=== PATIENT | female | born 1945 | race Caucasian/White ===

== ENCOUNTER 2018-01-07 10:36 | Outpatient (CLI) | payer MEDICARE ==
--- NOTE | 2018-01-07 14:52 | PET ---
PET CT OF THE BRAIN: HISTORY: Alzheimer's disease with early onset. TECHNIQUE: PET CT of the brain was performed following the intravenous administration of 8.3 mCi [id number] glucose in the right antecubital fossa. Imaging after an uptake interval of 45 minutes. FINDINGS: Fairly symmetric tracer distribution is seen to the hemispheres bilaterally. No hypOmetabolism is se en in the parietotemporal regions, posterior cingulate gyrus of precuneus. IMPRESSION: No significant abnormalities are identified. POS: JUAN
== END 2018-01-07 10:37 | disposition home or self-care (01) ==
LOC: PET 10:36
PROVIDERS: ATTEND Psychiatry & Neurology Neurology
DX: G30.0 Alzheimer's disease with early onset (principal)
CPT/HCPCS: 78608; A9552

== ENCOUNTER 2018-10-06 12:47 | Inpatient (IN) | payer MEDICARE ==
[2018-10-06 14:24] LABS: #Eosinphils 0.2 thou/uL (0.0-0.7); #Lymphocytes 1.4 thou/uL (1.20-3.40); #Monocytes 0.3 thou/uL (0.11-0.59); %Basophils 0.9 % (0.0-1.0); %Eosinophils 3.8 % (0.0-10.0); %Lymphocytes 28.7 % (21.0-51.0); %Monocytes 5.6 % (0.0-10.0); %Neutrophils 61.1 % (42.0-75.0); Hemoglobin 11.7 g/dL (12.0-16.0); Mean Corpuscular HGB CONC 34.7 g/dL (32.0-36.0); Mean Corpuscular Hemoglobin 32.2 pg (27.0-31.0); Mean Corpuscular Volume 92.8 fL (78.0-98.0); Mean Platelet Volume 7.2 fL (7.4-10.4); Platelet Count 189 thou/uL (130-400); RBC Distribution Width 11.8 % (11.5-14.5); Red Blood Cell (RBC) Count 3.63 mill/uL (4.20-5.40)
[2018-10-06] MEDS ORDERED: Lorazepam 2 MG/ML VIAL ONE (14:42)
[2018-10-06] MEDS ORDERED: Haloperidol Lactate 5 MG/ML VIAL ONE (14:43)
[2018-10-06 14:45] LABS: ALT (SGPT) 17 U/L (8-55); AST (SGOT) 20 U/L (5-34); Albumin 4.2 g/dL (3.4-4.8); Alkaline Phosphatase 71 U/L (40-150); Anion Gap 12 mmol/L (10-20); BUN (Urea Nitrogen) 23 mg/dL (9.8-20.1); Bilirubin, Total 0.4 mg/dL (0.2-1.2); Calc. Creatinine Clearance 0 mL/min (70-130); Carbon Dioxide 24 mmol/L (23-31); Chloride 109 mmol/L (98-107); Estimated GFR-MDRD 33; Glucose 84 mg/dL (83-110); Potassium 3.9 mmol/L (3.5-5.1); Protein, Total 7.2 g/dL (6.0-8.3); Sodium 141 mmol/L (136-145)
[2018-10-06] MEDS ORDERED: Ketamine 50 MG/ML (10ML VIAL) ONE (15:18)
--- NOTE | 2018-10-06 16:14 | CT ---
EXAM: CT brain without contrast HISTORY: Worsening altered mental status COMPARISON: None TECHNIQUE: Multiple contiguous axial images were obtained and a CT of the brain without contrast. FINDINGS: Diffuse cerebral atrophy is seen. No large confluent infarction is seen. There is no eviden ce of hydrocephalus, intracranial hemorrhage, or extra-axial fluid collection. The calvarium and overlying soft tissues are unremarkable. The visualized paranasal sinuses and masto id air cells are well aerated. IMPRESSION: No evidence of acute intracranial abnormality
[2018-10-06] MEDS ORDERED: Ziprasidone 20 MG VIAL ONE ×3 (16:33→16:40)
[2018-10-06 16:50] LABS: Bilirubin Negative (Negative); Blood, Urine Small (Negative); Clarity Slightly Cloudy (Clear); Glucose, Urine (Dipstick) Negative (Negative); Leukocyte Negative (Negative); Nitrite Positive (Negative); Protein, Urine (Dipstick) 30 mg/dL (Neg-Trace); Specific Gravity, Urine 1.025 (1.005-1.030); Urobilinogen 0.2 mg/dL (0.2-1.0); pH, Urine 5.5 (5.0-9.0)
[2018-10-06 17:03] LABS: Bacteria/HPF 4+ HPF (None Seen); Squamous Epithelial 0-3 HPF (0-3)
[2018-10-06 17:04] LABS: Hyaline Casts/LPF 0-3 HYALINE CAST LPF (0-3 Hyaline)
[2018-10-06] MEDS ORDERED: cefTRIAXone\\ROCEPHIN 1 GM VIAL ONE (17:15)
[2018-10-06 17:35] LABS: CK (CPK) 458 U/L (29-168); Lipase 214 U/L (8-78)
[2018-10-06] MEDS ORDERED: Ondansetron ODT 4 MG TAB SL PRN (19:53)
[2018-10-06] MEDS ORDERED: Sodium Chloride 0.9% 1,000 ML IV SCH (19:53)
[2018-10-06] MEDS ORDERED: Ondansetron PF 4 MG/2 ML Vial IVP PRN (19:53)
[2018-10-07] MEDS ORDERED: Calcium Carbonate 500 MG ChewTAB PO PRN (00:13)
[2018-10-07] MEDS ORDERED: Bisacodyl 10 MG SUPP PR PRN (00:13)
[2018-10-07] MEDS ORDERED: Acetaminophen 325 MG TAB PO PRN (00:13)
[2018-10-07] MEDS ORDERED: Acetaminophen 650 MG Suppository PR PRN (00:13)
[2018-10-07] MEDS ORDERED: cloNIDine 0.1 MG TAB PO PRN (00:17)
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
[2018-10-07] MEDS: Dextrose 5 %-0.45 % NaCl 1,000 ML IV SCH ×2 (01:00→12:21)
[2018-10-07] MEDS ORDERED: cloNIDine 0.1mg/24 Hour PATCH TD SCH (01:00)
[2018-10-07 06:27] LABS: #Eosinphils 0.2 thou/uL (0.0-0.7); #Lymphocytes 1.2 thou/uL (1.20-3.40); #Monocytes 0.3 thou/uL (0.11-0.59); #Neutrophils 3.4 thou/uL (1.40-6.50); %Basophils 0.2 % (0.0-1.0); %Eosinophils 3.8 % (0.0-10.0); %Lymphocytes 22.7 % (21.0-51.0); %Monocytes 6.6 % (0.0-10.0); %Neutrophils 66.7 % (42.0-75.0); Hemoglobin 11.3 g/dL (12.0-16.0); Mean Corpuscular HGB CONC 33.7 g/dL (32.0-36.0); Mean Corpuscular Hemoglobin 31.5 pg (27.0-31.0); Mean Corpuscular Volume 93.5 fL (78.0-98.0); Mean Platelet Volume 7.1 fL (7.4-10.4); Platelet Count 168 thou/uL (130-400); RBC Distribution Width 11.7 % (11.5-14.5); White Blood Cell (WBC) Count 5.1 thou/uL (4.8-10.8)
[2018-10-07 06:51] LABS: ALT (SGPT) 17 U/L (8-55); AST (SGOT) 26 U/L (5-34); Albumin 3.7 g/dL (3.4-4.8); Alkaline Phosphatase 70 U/L (40-150); Anion Gap 13 mmol/L (10-20); BUN (Urea Nitrogen) 18 mg/dL (9.8-20.1); Bilirubin, Total 0.4 mg/dL (0.2-1.2); CK (CPK) 682 U/L (29-168); Calc. Creatinine Clearance 33 mL/min (70-130); Calcium 8.7 mg/dL (7.8-10.44); Carbon Dioxide 22 mmol/L (23-31); Chloride 110 mmol/L (98-107); Estimated GFR-MDRD 38; Globulin 2.6 g/dL (2.4-3.5); Glucose 98 mg/dL (83-110); Lipase 44 U/L (8-78); Magnesium 2.1 mg/dL (1.6-2.6); Phosphorus 3.4 mg/dL (2.3-4.7); Potassium 3.5 mmol/L (3.5-5.1); Protein, Total 6.3 g/dL (6.0-8.3); Sodium 141 mmol/L (136-145)
[2018-10-07 07:53] LABS: Folate (Folic Acid) 15.3 ng/mL (7.0-31.4)
[2018-10-07] MEDS: Metoprolol Tartrate 25 MG TAB PO SCH ×2 (09:01→20:00)
[2018-10-07] MEDS: Senokot S 8.6-50 MG TAB PO SCH ×2 (09:02→20:01)
[2018-10-07] MEDS: Amlodipine 5 MG TAB PO SCH ×2 (09:02→19:59)
[2018-10-07] MEDS: Enoxaparin Sodium 30 MG/0.3 ML SYRINGE SC SCH (09:03)
[2018-10-07] MEDS ORDERED: Lorazepam 1 MG TAB PO PRN ×2 (14:05→19:16)
--- NOTE | 2018-10-07 14:26 | PDOC.PN ---
- Subjective Encounter Start Date: 10/07/18 (f/u encephalopathy) Encounter Start Time: 14:24 Subjective: Pt sitting on side of bed, son states difficulty with having her sit down. -: He reports she is more calm today. Has been combative and fighting at home -: 2 meds recently initiated and stopped at home - donepezil and celexa - Objective Vital Signs & Weight: Vital Signs (12 hours) Temp Pulse Resp BP BP BP Pulse Ox 10/07/18 12:00 98.4 F 59 L 18 121/72 95 10/07/18 09:02 65 136/73 10/07/18 08:00 95 10/07/18 07:46 97.7 F 65 16 136/77 99 10/07/18 04:13 97.5 F L 65 16 134/75 96 Weight Weight 130 lb I&O: 10/06/18 10/07/18 10/08/18 06:59 06:59 06:59 Intake Total 800 Balance 800 Result Diagrams: 10/07/18 06:14 10/07/18 06:14 Phys Exam - Physical Examination Constitutional: NAD Respiratory: no wheezing, no rales, no rhonchi, clear to auscultation bilateral Cardiovascular: RRR, no significant murmur Gastrointestinal: soft, non-tender, no distention, positive bowel sounds Musculoskeletal: no edema Neurological: non-focal Deviation from normal: not oriented to time/place/situation Dx/Plan (1) UTI (urinary tract infection) Status: Acute (2) Dementia Code(s): F03.90 - UNSPECIFIED DEMENTIA WITHOUT BEHAVIORAL DISTURBANCE Status: Chronic Qualifiers: Dementia type: unspecified type (3) Encephalopathy Code(s): G93.40 - ENCEPHALOPATHY, UNSPECIFIED Status: Acute (4) Elevated CK Status: Acute (5) CKD (chronic kidney disease) Code(s): N18.9 - CHRONIC KIDNEY DISEASE, UNSPECIFIED Status: Chronic Qualifiers: Chronic kidney disease stage: stage 3 (moderate) Qualified Code(s): N18.3 - Chronic kidney disease, stage 3 (moderate) (6) Anemia Code(s): D64.9 - ANEMIA, UNSPECIFIED Status: Chronic Qualifiers: Chronic kidney disease stage: stage 3 (moderate) (7) Hypertension Code(s): I10 - ESSENTIAL (PRIMARY) HYPERTENSION Status: Chronic Qualifiers: Hypertension type: essential hypertension Qualified Code(s): I10 - Essential (primary) hypertension - Plan * Pt with improvement - reviewed meds with son and since donepezil and celexa were recently initiated and d/c by them due to behavior, will hold on these. Resume lorazepam * lower IVF rate * elevated cK likely from combative behavior at home - continue Low rate IVF * continue rocephin - urine cx positive for gram neg growth, and blood cx negative * * dvt prophy - lovenox * gi prophy - not indicated * code status full - reviewed with pt's son and daughter. They report their Dad is the surrogate decision maker..
[2018-10-07] MEDS ORDERED: Dextrose 5 %-0.45 % NaCl 1,000 ML IV SCH (14:32)
[2018-10-07] MEDS: cefTRIAXone\\ROCEPHIN 1 GM in Sodium Chloride 0.9% 100 ML IVPB SCH (15:25)
[2018-10-07 15:58] VITALS: BMI 23.0
[2018-10-07] MEDS: Lorazepam 2 MG/ML VIAL SLOW IVP PRN (19:53)
[2018-10-07] MEDS ORDERED: Donepezil HCl 5 MG TAB PO SCH (21:00)
[2018-10-07] MEDS ORDERED: Prevnar 13-Val Conj/PF 0.5 ML SYRINGE IM ONE (21:00)
[2018-10-08 08:41] LABS: Anion Gap 11 mmol/L (10-20); BUN (Urea Nitrogen) 11 mg/dL (9.8-20.1); Calc. Creatinine Clearance 34 mL/min (70-130); Calcium 8.8 mg/dL (7.8-10.44); Carbon Dioxide 24 mmol/L (23-31); Chloride 109 mmol/L (98-107); Estimated GFR-MDRD 39; Glucose 91 mg/dL (83-110); Magnesium 1.7 mg/dL (1.6-2.6); Phosphorus 3.5 mg/dL (2.3-4.7); Potassium 3.4 mmol/L (3.5-5.1); Sodium 141 mmol/L (136-145)
[2018-10-08] MEDS ORDERED: Citalopram 20 MG TAB PO SCH (09:00)
[2018-10-08] MEDS: Metoprolol Tartrate 25 MG TAB PO SCH ×2 (09:17→20:51)
[2018-10-08] MEDS: Senokot S 8.6-50 MG TAB PO SCH ×2 (09:18→20:38)
[2018-10-08] MEDS: Enoxaparin Sodium 30 MG/0.3 ML SYRINGE SC SCH (09:18)
[2018-10-08] MEDS: Amlodipine 5 MG TAB PO SCH ×3 (09:18→20:49)
[2018-10-08] MEDS: Lorazepam 2 MG/ML VIAL SLOW IVP PRN ×2 (11:48→15:56)
--- NOTE | 2018-10-08 14:14 | PDOC.PN ---
- Subjective Encounter Start Date: 10/08/18 (f/u encephalopathy) Encounter Start Time: 14:11 Subjective: Pt's daughter reports this mornign was better, but a change in the -: pt following instructions and eating this afternoon. Still better compared -: to admission - Objective Vital Signs & Weight: Vital Signs (12 hours) Temp Pulse Resp BP BP Pulse Ox 10/08/18 09:18 63 10/08/18 08:00 96 10/08/18 07:59 98.2 F 63 20 151/80 H 96 10/08/18 04:00 97.9 F 63 18 139/68 98 Weight Admit Weight 130 lb Weight 130 lb I&O: 10/07/18 10/08/18 10/09/18 06:59 06:59 06:59 Intake Total 800 Balance 800 Result Diagrams: 10/07/18 06:14 10/08/18 08:12 Phys Exam - Physical Examination Constitutional: NAD Respiratory: no wheezing, no rales, no rhonchi, clear to auscultation bilateral Cardiovascular: RRR, no significant murmur, no rub Gastrointestinal: soft, non-tender, no distention, positive bowel sounds Musculoskeletal: no edema 2+ dp pulses bilateral Deviation from normal: scaling around toes. thickened/yellow nails Dx/Plan (1) UTI (urinary tract infection) Status: Acute (2) Dementia Code(s): F03.90 - UNSPECIFIED DEMENTIA WITHOUT BEHAVIORAL DISTURBANCE Status: Chronic Qualifiers: Dementia type: unspecified type (3) Encephalopathy Code(s): G93.40 - ENCEPHALOPATHY, UNSPECIFIED Status: Acute (4) Elevated CK Status: Acute (5) CKD (chronic kidney disease) Code(s): N18.9 - CHRONIC KIDNEY DISEASE, UNSPECIFIED Status: Chronic Qualifiers: Chronic kidney disease stage: stage 3 (moderate) Qualified Code(s): N18.3 - Chronic kidney disease, stage 3 (moderate) (6) Anemia Code(s): D64.9 - ANEMIA, UNSPECIFIED Status: Chronic Qualifiers: Chronic kidney disease stage: stage 3 (moderate) (7) Hypertension Code(s): I10 - ESSENTIAL (PRIMARY) HYPERTENSION Status: Chronic Qualifiers: Hypertension type: essential hypertension Qualified Code(s): I10 - Essential (primary) hypertension - Plan * Pt with improvement - recommend an additional dose of ceftriaxone today and plan for d/c tomorrow with oral meds - keflex * * d/c IVF * replace potassium with 1 dose * renal function is stable * * continue with home meds as ordered * daughter concerned about nails - recommend f/u with Dr. Saleh in the outpatient setting. For scaling around toes - start topical anti-fungal * * dvt prophy - lovenox * gi prophy - not indicated * code status full - * reviewed plan of care with pt's daughter. She reports pt has support at home and plan will be discharge to home tomorrow.
[2018-10-08] MEDS ORDERED: Potassium Chloride 20 MEQ TAB PO SCH (14:15)
[2018-10-08] MEDS: cefTRIAXone\\ROCEPHIN 1 GM in Sodium Chloride 0.9% 100 ML IVPB SCH (16:01)
--- NOTE | 2018-10-08 18:36 | PDOC.EVN ---
Event Note - Event Note Event Note: Called by RN for pt combative, refusing to wear briefs in room and agitated. Pt has received IV ativan which helped for an hour or so. She has seroquel ordered for tonight - requested this be given now, and to allow pt to be without briefs or other techniques to re-orient and calm the situation.
[2018-10-09] MEDS: Lorazepam 2 MG/ML VIAL SLOW IVP PRN ×2 (05:24→15:35)
[2018-10-09 05:58] LABS: Anion Gap 13 mmol/L (10-20); BUN (Urea Nitrogen) 11 mg/dL (9.8-20.1); Calc. Creatinine Clearance 36 mL/min (70-130); Calcium 9.3 mg/dL (7.8-10.44); Carbon Dioxide 23 mmol/L (23-31); Chloride 111 mmol/L (98-107); Estimated GFR-MDRD 41; Glucose 74 mg/dL (83-110); Magnesium 1.9 mg/dL (1.6-2.6); Potassium 3.9 mmol/L (3.5-5.1); Sodium 143 mmol/L (136-145)
[2018-10-09] MEDS ORDERED: Terbinafine 1% 30 GM TUBE TOP SCH (09:00)
--- NOTE | 2018-10-09 09:14 | PDOC.PN ---
- Subjective Encounter Start Date: 10/09/18 (f/u UTI) Encounter Start Time: 09:12 Subjective: Pt with diarrhea overnight. Family reports this was ongoing at home -: as well. They also note she is shaking this morning - new. Behavior -: at home has been combative. They have been working with organizations on placement and pt either does not qualify or does not have the financial resources. - Objective Vital Signs & Weight: Vital Signs (12 hours) Temp Pulse Resp BP Pulse Ox 10/09/18 08:00 97.9 F 70 18 137/75 97 10/09/18 04:00 97.7 F 68 20 140/94 H 98 Weight Admit Weight 130 lb Weight 130 lb Result Diagrams: 10/07/18 06:14 10/09/18 04:40 Phys Exam - Physical Examination Constitutional: NAD Respiratory: no wheezing, no rales, no rhonchi, clear to auscultation bilateral Cardiovascular: RRR 2/6 ARNOLDO Gastrointestinal: soft, non-tender, no distention, positive bowel sounds Musculoskeletal: no edema Neurological: non-focal able to ambulate with short steps Deviation from normal: awake but not oriented Dx/Plan (1) UTI (urinary tract infection) Status: Acute (2) Dementia Code(s): F03.90 - UNSPECIFIED DEMENTIA WITHOUT BEHAVIORAL DISTURBANCE Status: Chronic Qualifiers: Dementia type: unspecified type (3) Encephalopathy Code(s): G93.40 - ENCEPHALOPATHY, UNSPECIFIED Status: Acute (4) Elevated CK Status: Acute (5) CKD (chronic kidney disease) Code(s): N18.9 - CHRONIC KIDNEY DISEASE, UNSPECIFIED Status: Chronic Qualifiers: Chronic kidney disease stage: stage 3 (moderate) Qualified Code(s): N18.3 - Chronic kidney disease, stage 3 (moderate) (6) Anemia Code(s): D64.9 - ANEMIA, UNSPECIFIED Status: Chronic Qualifiers: Chronic kidney disease stage: stage 3 (moderate) (7) Hypertension Code(s): I10 - ESSENTIAL (PRIMARY) HYPERTENSION Status: Chronic Qualifiers: Hypertension type: essential hypertension Qualified Code(s): I10 - Essential (primary) hypertension (8) Diarrhea Code(s): R19.7 - DIARRHEA, UNSPECIFIED Status: Acute - Plan * Diarrhea - d/c sennokot, check c diff * UTI - has received 3 doses of rocephin and will plan for transition to keflex for 1 week course * * renal function is stable * * continue with home meds as ordered * daughter concerned about nails - recommend f/u with Dr. Saleh in the outpatient setting. For scaling around toes - topical anti-fungal * * dvt prophy - lovenox * gi prophy - not indicated * code status full - * reviewed plan of care with pt's daughter/son. She reports pt has support at home and plan will be discharge to home after c diff testing performed. * Discussed Palliative care as a resource for behavioral management, and f/u with Drs. Saleh and Jose.
[2018-10-09] MEDS: Metoprolol Tartrate 25 MG TAB PO SCH (09:19)
[2018-10-09] MEDS: Enoxaparin Sodium 30 MG/0.3 ML SYRINGE SC SCH (09:19)
[2018-10-09] MEDS: Amlodipine 5 MG TAB PO SCH (09:19)
[2018-10-09] MEDS: Senokot S 8.6-50 MG TAB PO SCH (09:23)
[2018-10-09 16:33] VITALS: BP 133/72; TEMP 97.5
--- NOTE | 2018-10-09 21:42 | DIS ---
DATE OF ADMISSION: 10/06/2018 DATE OF DISCHARGE: 10/09/2018 PRIMARY CARE PROVIDER: Dr. Saleh. MEDICATIONS: Reconciled at discharge. New medications are Keflex 500 mg p.o. b.i.d. for 4 days starting this evening. Florastor one capsule daily. Imodium 1 tablet daily as needed for diarrhea. Changed medication are quetiapine, has been increased to 25 mg b.i.d. Medications discontinued are Celexa and Aricept. This patient was having problems with these in the outpatient setting and they were discontinued prior to her arrival and they were not restarted here. Medications to resume are: 1. Amlodipine 10 mg daily. 2. Lorazepam 1 mg p.o. q.8 hours p.r.n. agitation. 3. Toprol-XL 25 mg p.o. daily. FINAL DIAGNOSES: 1. Toxic metabolic encephalopathy secondary to urinary tract infection. 2. Urinary tract infection. 3. Alzheimer dementia. 4. Chronic kidney disease stage 3. SECONDARY DIAGNOSES: 1. Hypertension. 2. Generalized anxiety. 3. Physical deconditioning. 4. History of lung cancer and cervical cancer. 5. Chronic anemia. HISTORY OF PRESENT ILLNESS: Ms. Byers is a 73-year-old female, cared for at home with increasing agitation as well as urinary incontinence. There was an attempt at managing this in the outpatient setting by adding Celexa and donepezil; however, this did not improve the symptoms. Because of the worsening symptoms, the patient was brought in for care and found to have a UTI. HOSPITAL COURSE: The patient was treated with 3 doses of IV Rocephin and has responded well. There are times of agitation that occur here that have responded either to Ativan or for reorienting with the assistance of a sitter or family members here. Overall, the patient's son and daughter state that this is improved compared to admission. Dementia with baseline agitation, the son and daughter abdomen looking at other resources that she is cared for at home. They note at times that the patient is very combative with them. They have been working with Dr. Saleh and Dr. Garcia as far as managing this behavior. We discussed the following here: 1. Increasing the Seroquel to twice daily rather than just at bedtime to see if this helps. 2. Continuing to follow up with Dr. Saleh and Dr. Garcia. 3. Consider palliative care to help with symptom management during this time. 4. They are looking into resources with regard to placement or additional supports in the community. At this point, the patient does not qualify or finances preclude these options. 5. To consider avoiding any products with caffeine, they report that the patient likes to drink Coke all day. I simply recommend avoiding caffeine or any stimulants. The patient has been ambulating well. The diarrhea was evaluated and negative for Clostridium difficile. Her blood cultures are negative and her urine culture does show Klebsiella. She will be discharged to home with her family to complete a full 1-week course of antibiotics. The patient's renal function; the patient by chart review has chronic kidney disease stage 3 and her creatinine has been stable here. She is noted to have an elevated creatine kinase, which is consistent with a combative behavior reported prior to this admission. The patient does meet criteria for discharge to home. PHYSICAL EXAMINATION: VITAL SIGNS: On day of discharge, please see the note on the chart. ALVARADO FINDING AND TEST RESULTS: CBC; 5.1, 11.3, 33.6, 168. Chemistry; 143, 3.9, 111, 23, 11, 1.27, 74. Calcium 9.3. Magnesium 1.9. CK 458 and 682. Total protein 6.3, albumin 3.7, lipase 44 down from 214 on admission. Vitamin B12 818 and folate 15.3. Urine showed trace ketones, small blood, positive nitrites, 11-28 white blood cells. Urine culture, Klebsiella indeterminate to nitrofurantoin, however, sensitive to all other things tested. Brain CT on admission shows no evidence of any acute intracranial abnormality. FOLLOWUP: Followup is with Dr. Saleh recommended within a week to review this hospitalization and consider other medication to assist with behavior. She is to follow up with Dr. Garcia with regard to medications to assist with dementia at the first available appointment. ACTIVITY: As tolerated. DIET: Regular diet again with the avoidance of stimulants is recommended. CODE STATUS: Full. Surrogate decision maker has been the patient's . DISCHARGE DISPOSITION: Home with the patient's family. Reviewed with the patient's son and daughter this hospitalization, the treatment, the change in Seroquel to twice daily dosing with the attempt to help manage the combative behavior in a way that is not harmful to the patient or others, to seek care precautions. There were no questions or further needs at the end of evaluation. The patient is at high risk for readmission given age comorbidities, current presentation. Total time coordinating discharge is 40 minutes. Job ID: [id number]
== END 2018-10-09 17:40 | disposition home or self-care (01) | DRG 689 ==
LOC: ERS 12:47 → T4-B 19:51
PROVIDERS: ADMIT Emergency Medicine; ATTEND Emergency Medicine
DX: N39.0 Urinary tract infection, site not specified (principal); G92 Toxic encephalopathy; F02.81 Dementia in other diseases classified elsewhere, unspecified severity, with behavioral disturbance; G30.9 Alzheimer's disease, unspecified; N18.3 Chronic kidney disease, stage 3 (moderate); I12.9 Hypertensive chronic kidney disease with stage 1 through stage 4 chronic kidney disease, or unspecified chronic kidney disease; B96.1 Klebsiella pneumoniae [K. pneumoniae] as the cause of diseases classified elsewhere; D63.1 Anemia in chronic kidney disease; R19.7 Diarrhea, unspecified; Z85.41 Personal history of malignant neoplasm of cervix uteri; Z85.118 Personal history of other malignant neoplasm of bronchus and lung; Z92.21 Personal history of antineoplastic chemotherapy; Z90.2 Acquired absence of lung [part of]; Z90.710 Acquired absence of both cervix and uterus; Z90.49 Acquired absence of other specified parts of digestive tract; Z88.5 Allergy status to narcotic agent; Z88.2 Allergy status to sulfonamides; Z88.8 Allergy status to other drugs, medicaments and biological substances; Z79.899 Other long term (current) drug therapy; Z87.891 Personal history of nicotine dependence; R32 Unspecified urinary incontinence; F41.1 Generalized anxiety disorder
CPT/HCPCS: 36415; 51701; 70450; 80048; 80053; 81003; 81015; 82140; 82550; 82607; 82746; 83690; 83735; 84100; 84484; 85025; 87040; 87077; 87086; 87186; 87324; 87449; 96365; 96366; 96372; A4353; J0696; J1630; J1650; J2060; J3486; J3490

== ENCOUNTER 2018-11-13 14:22 | Emergency (ER) | payer MEDICARE ==
[2018-11-13] MEDS ORDERED: Triple Antibiotic Oint 1 GM Packet ONE (15:11)
[2018-11-13] MEDS ORDERED: Bacitracin 1 PK ONE (15:11)
== END 2018-11-13 15:15 | disposition home or self-care (01) ==
LOC: ERS 14:22
DX: S60.512A Abrasion of left hand, initial encounter (principal); S60.511A Abrasion of right hand, initial encounter; I10 Essential (primary) hypertension; G30.9 Alzheimer's disease, unspecified; F02.80 Dementia in other diseases classified elsewhere, unspecified severity, without behavioral disturbance, psychotic disturbance, mood disturbance, and anxiety; F41.9 Anxiety disorder, unspecified; Z85.118 Personal history of other malignant neoplasm of bronchus and lung; Z87.891 Personal history of nicotine dependence; Z79.899 Other long term (current) drug therapy; W53.11XA Bitten by rat, initial encounter
CPT/HCPCS: 99284

== ENCOUNTER 2018-12-12 11:12 | Emergency (ER) | payer MEDICARE ==
[2018-12-12 11:57] LABS: Bilirubin 1+ (Negative); Blood, Urine Negative (Negative); Clarity Turbid (Clear); Glucose, Urine (Dipstick) Normal (Negative); Leukocyte Negative Leu/uL (Negative); Nitrite Negative (Negative); Protein, Urine (Dipstick) 70 mg/dL (Neg-Trace); RBC/HPF 0-3 HPF (0-3)
[2018-12-12 11:58] LABS: Bacteria/HPF 1+ HPF (None Seen)
[2018-12-12 12:14] LABS: Hemoglobin 9.5 g/dL (12.0-16.0); Mean Corpuscular HGB CONC 33.7 g/dL (32.0-36.0); Mean Corpuscular Hemoglobin 31.8 pg (27.0-31.0); Mean Corpuscular Volume 94.5 fL (78.0-98.0); RBC Distribution Width 11.9 % (11.5-14.5); Red Blood Cell (RBC) Count 2.98 mill/uL (4.20-5.40); White Blood Cell (WBC) Count 3.2 thou/uL (4.8-10.8)
[2018-12-12 12:31] LABS: ALT (SGPT) 17 U/L (8-55); AST (SGOT) 26 U/L (5-34); Albumin 3.7 g/dL (3.4-4.8); Alkaline Phosphatase 62 U/L (40-150); Anion Gap 15 mmol/L (10-20); BUN (Urea Nitrogen) 22 mg/dL (9.8-20.1); Bilirubin, Total 0.4 mg/dL (0.2-1.2); Calc. Creatinine Clearance 0 mL/min (70-130); Calcium 8.5 mg/dL (7.8-10.44); Carbon Dioxide 20 mmol/L (23-31); Chloride 111 mmol/L (98-107); Estimated GFR-MDRD 29; Globulin 1.8 g/dL (2.4-3.5); Glucose 117 mg/dL (83-110); Potassium 3.9 mmol/L (3.5-5.1); Protein, Total 5.5 g/dL (6.0-8.3); Sodium 142 mmol/L (136-145)
[2018-12-12 12:34] LABS: #Lymphocytes 0.5 thou/uL (1.20-3.40); #Monocytes 0.1 thou/uL (0.11-0.59); #Neutrophils 2.5 thou/uL (1.40-6.50); %Basophils 0.6 % (0.0-1.0); %Eosinophils 0.8 % (0.0-10.0); %Lymphocytes 16.2 % (21.0-51.0); %Monocytes 4.5 % (0.0-10.0); %Neutrophils 77.8 % (42.0-75.0); Mean Platelet Volume 8.1 fL (7.4-10.4); Platelet Count 114 thou/uL (130-400); Platelet Morphology Comment Appears Decreased
--- NOTE | 2018-12-12 12:37 | RAD ---
Portable frontal chest radiograph: 12/12/2018 COMPARISON: 11/11/2013 HISTORY: Unresponsive patient FINDINGS: The lungs are hyperinflated. Increased linear interstitial density noted. Findings suggest COPD in the proper clinical setting. Postoperative suture line and clips noted in right hilar region. There is atherosclerotic desiccation the aortic arch. No pneumothorax or pleural fluid. No fo dorian consolidation or alveolar edema. IMPRESSION: Chronic findings as detailed above.
== END 2018-12-12 15:19 | disposition home or self-care (01) ==
LOC: ERS 11:12
DX: R55 Syncope and collapse (principal); R79.89 Other specified abnormal findings of blood chemistry; I10 Essential (primary) hypertension; G30.9 Alzheimer's disease, unspecified; F41.9 Anxiety disorder, unspecified; Z87.891 Personal history of nicotine dependence; Z79.899 Other long term (current) drug therapy
CPT/HCPCS: 51701; 71045; 80053; 81003; 81015; 84484; 85025; 93005; 94760; 96360; A4353